=== PATIENT | male | born 1960 | race Caucasian/White ===

== ENCOUNTER 2022-01-22 08:06 | Emergency (ER) | payer SELFPAY ==
[2022-01-22 08:10] VITALS: BP 207/122; PULSE 86; RESP 20; TEMP 37.3; O2SAT 100
--- NOTE | 2022-01-22 08:13 | ED.MALEGU ---
HPI - Male Genitourinary General Chief complaint: Urogenital-Male Stated complaint: Urinary Problem Time Seen by Provider: 01/22/22 08:14 Source: patient and RN notes reviewed History of Present Illness HPI Narrative: Patient is a 61-year-old male who presents the urgent care with complaints of low back pain that started 2 weeks ago a flex a blood in the urine this morning. Patient denies of any history of UTIs or kidney stones. States that the back pain has improved while taking ibuprofen. Patient states that he initially hurt his back when lifting multiple bags of heavy dog food. Patient denies any urinary symptoms such as urinary frequency, urgency or dysuria. Denies of any fever, nausea or vomiting. Patient states that he is aware of his hypertension and is supposed to be on high blood pressure medications however he has not been on his medications since the start of COVID. Patient currently does not have a primary care doctor. Denies any headaches or chest pain. No other acute complaints. No acute distress noted. Patient aware of the plan of care. Some parts of this dictation were generated by voice recognition software and may contain typographical and/or grammatical inaccuracies. Related Data Home Medications Medication Instructions Recorded Confirmed No Home Medications 01/22/22 01/22/22 Allergies Allergy/AdvReac Type Severity Reaction Status Date / Time No Known Allergies Allergy Verified 01/22/22 08:24 Review of Systems Review of Systems: CONSTITUTIONAL: Denies fever, chills, or sweats. EYES: Denies visual changes, redness, or discharge. ENT: Denies rhinorrhea, congestion, sore throat, or otalgia. CARDIOVASCULAR: Denies chest pain, palpitations, or edema. RESPIRATORY: Denies cough or dyspnea. GASTROINTESTINAL: Denies abdominal pain, nausea, vomiting, or diarrhea. GENITOURINARY: Reports of blood in the urine SKIN: Denies rash or itching. MUSCULOSKELETAL: Reports of intermittent low back pain that is improving NEUROLOGIC: Denies headache, numbness, or weakness. All other systems reviewed are negative, except as documented in HPI. PMFSH Comments At the time of my signature, I reviewed and agree with the nursing past medical, surgical, social, and family history. There is no relevant family history pertinent to the patient complaint. Exam Narrative: GENERAL: This is a well-nourished, well-developed patient, in no apparent distress. HEAD: normocephalic, atraumatic. EYES: PERRL. Sclera clear/white. Vision is grossly intact. EARS: External ears normal NOSE: External nose normal with no obvious nasal discharge, nares without redness, no rhinorrhea. THROAT: Mucous membranes moist NECK: Neck supple CARDIOVASCULAR: Regular rate and rhythm without murmurs, gallops, or rubs. RESPIRATORY: Clear to auscultation. Breath sounds equal bilaterally. No wheezes, rales, or rhonchi. GASTROINTESTINAL: Abdomen soft, non-tender, nondistended. SKIN: warm, intact with no suspicious lesions or rash, good texture and turgor. NEURO: awake, alert, and oriented to person, place and time. There were no obvious focal neurologic abnormalities. EXTREMITIES: No clubbing, cyanosis, or edema. BACK: Negative bilateral CVA tenderness Course Course Level of Care: Express Care Visit Vital Signs Vital signs: Vital Signs Temperature 99.2 F 01/22/22 08:10 Pulse Rate 86 01/22/22 08:10 Respiratory Rate 20 01/22/22 08:10 Blood Pressure 207/122 H 01/22/22 08:10 Pulse Oximetry 100 01/22/22 08:10 Oxygen Delivery Room Air 01/22/22 08:10 Temperature 99.2 F 01/22/22 08:10 Pulse Rate 86 01/22/22 08:10 Respiratory Rate 20 01/22/22 08:10 Blood Pressure 207/122 H 01/22/22 08:10 Pulse Oximetry 100 01/22/22 08:10 Oxygen Delivery Room Air 01/22/22 08:10 Reviewed-patient is informed that they may have pre-hypertension or hypertension based on a blood pressure reading in the department. I recommend the pat
[2022-01-22 08:40] VITALS: BP 220/120
== END 2022-01-22 08:40 | disposition left against medical advice (07) ==
PROVIDERS: Emergency Provider Nurse Practitioner Family
DX: I10 Essential (primary) hypertension (principal)
CPT/HCPCS: 81003; 99212; G0463